=== PATIENT | female | born 1965 | race Caucasian/White ===

== ENCOUNTER 2023-09-16 06:45 | Day surgery (SDC) | payer OTHER, SELFPAY ==
[2023-09-16] VITALS (17 sets, daily range): BP systolic 109–160; BP diastolic 61–105; BMI 29.2
[2023-09-16 07:24] LABS: ALT (SGPT) 25 U/L (0-35); AST (SGOT) 40 U/L (14-36); Albumin 4.6 g/dl (3.5-5.0); Alkaline Phosphatase 69 U/L (38-126); Blood Urea Nitrogen 13 mg/dl (7-17); Calcium 9.6 mg/dl (8.4-10.2); Carbon Dioxide 28 mmol/L (22-30); Chloride 103 mmol/L (98-107); Glucose 171 mg/dl (70-99); Sodium 139 mmol/L (135-145); Total Bilirubin 0.6 mg/dl (0.2-1.3); Total Protein 6.7 g/dl (6.3-8.2); eGFR > 60.00
[2023-09-16] MEDS: LOW STRENGTH ASPIRIN 324 MG PO (08:13)
[2023-09-16] MEDS: NSS 197 ML IV (08:15)
--- NOTE | 2023-09-16 08:32 | ITS.CL.CATH ---
Phys Therapist - Catheterization
Cardiac Catheterization
Procedure Report:
CARDIAC CATHETERIZATION REPORT
Date of Procedure: 09/16/2023
Referring: Ian Nunez MD
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
HEMODYNAMIC DATA
AO: 154/87
LV: 154/19
LEFT VENTRICULOGRAPHY: The left ventricle is mildly dilated. There is severe inferior and moderate anterior hypokinesis. The LVEF is 41%
CORONARY ANGIOGRAPHY
Dominance: Right
Left Main: Normal
LAD: Normal
Circumflex: Normal
RCA: Normal
Closure Device: None-the procedure was started via the right radial artery. Left ventriculography was performed. The patient developed significant innominate spasm during attempts to cannulate the LAD. She was treated with multiple doses of IC
nitroglycerin and additional sedation. We were able to image the RCA with a 5 Cypriot JR4. However, we were unable to manipulate JL 4, JL 3 5, and AL 2 diagnostic catheters due to the innominate spasm and converted to a right femoral artery
approach. Using a micropuncture technique a 4 Cypriot sheath was placed in the RFA. A 4 Cypriot JL 3.5 guide catheter was easily advanced into the left coronary artery. At the procedure conclusion we applied an armband to the right radial site and
hemostasis was obtained manually with a 20-minute hold in the recovery room for the RFA site.
Radiation (mGy): 205
DAP (cm2.Gy): 21.6
Fluoro time: 10.4 min
CONCLUSIONS
1: Systemic hypertension
2: Mildly dilated LV with EF 41%
3. Normal coronary arteries
4. Findings consistent with idiopathic versus hypertensive versus diabetic cardiomyopathy
5. We will begin losartan 25 mg daily. At follow-up would consider adding beta-fadia due to LV dysfunction
Copy to: Ian Nunez MD, Zoe Chu MD
Jonathon Geiger MD, [facility], [facility]
== END 2023-09-16 12:47 | disposition home or self-care (01) ==
LOC: CATH 06:45
PROVIDERS: ATTENDING PHYSICIAN Internal Medicine Cardiovascular Disease; FAMILY PHYSICIAN Family Medicine
DX: R07.9 Chest pain, unspecified (principal); R94.39 Abnormal result of other cardiovascular function study; I10 Essential (primary) hypertension; E78.5 Hyperlipidemia, unspecified; E11.9 Type 2 diabetes mellitus without complications; Z79.84 Long term (current) use of oral hypoglycemic drugs; Z79.85 Long-term (current) use of injectable non-insulin antidiabetic drugs
CPT/HCPCS: 80053; 93458; C1894; Q9967